=== PATIENT | male | born 1940 | race Caucasian/White ===

== ENCOUNTER → 2021-09-30 13:25 | Outpatient (CLI) | payer OTHER | END | disposition home or self-care (01) | LOC: LAB 13:25 | PROVIDERS: ATTEND Urology | DX: R97.20 Elevated prostate specific antigen [PSA] (principal) ==

== ENCOUNTER 2021-10-21 08:00 | Outpatient (CLI) | payer OTHER | END 2021-10-21 08:14 | disposition home or self-care (01) | LOC: SONOGRAMA 08:00 | PROVIDERS: ATTEND Urology | DX: R97.20 Elevated prostate specific antigen [PSA] (principal); C61 Malignant neoplasm of prostate ==

== ENCOUNTER 2022-02-14 07:26 | Outpatient (CLI) | payer OTHER | END 2022-02-14 07:27 | disposition home or self-care (01) | LOC: NUCLEAR 07:26 | PROVIDERS: ATTEND Internal Medicine Hematology & Oncology | DX: C88.8 Other malignant immunoproliferative diseases (principal); C90.00 Multiple myeloma not having achieved remission; C80.0 Disseminated malignant neoplasm, unspecified | CPT/HCPCS: 78812; A9552 ==